=== PATIENT | female | born 1945 | race Caucasian/White ===

== ENCOUNTER 2018-04-01 08:44 | Inpatient (IN) | payer MEDICARE, BC ==
[~2018-04-01] VITALS: Ht 170.2 cm; Wt 90.0 kg
[2018-04-01] MEDS ORDERED: normal saline 1000ML IV soln IV ONE (09:05)
[2018-04-01 09:51] LABS: BASOPHILS % (AUTO) 0.2 % (0-1); EOSINOPHILS # (AUTO) 0.4 X10'3 (0-0.9); EOSINOPHILS % (AUTO) 4.3 % (0-6); HEMATOCRIT 33.1 % (35.0-45.0); HEMOGLOBIN 10.8 g/dl (12.0-16.0); LYMPHOCYTES # (AUTO) 1.6 X10'3 (1.1-4.8); LYMPHOCYTES % (AUTO) 17.8 % (21-51); MEAN CORPUSCULAR HEMOGLOBIN 29.8 PG (27.0-31.0); MEAN CORPUSCULAR HGB CONC 32.7 % (33.0-36.5); MEAN CORPUSCULAR VOLUME 90.9 FL (78-98); MEAN PLATELET VOLUME 9.7 FL (7.4-10.4); MONOCYTES # (AUTO) 1.1 X10'3 (0-0.9); MONOCYTES % (AUTO) 12.4 % (2-12); NEUTROPHILS # (AUTO) 5.8 X10'3 (1.8-7.7); NEUTROPHILS % (AUTO) 65.3 % (42-75); PLATELET COUNT 236 X10'3 (140-440); RED BLOOD COUNT 3.64 X10'6 (4.20-5.60); RED CELL DISTRIBUTION WIDTH 13.8 % (11.5-14.5); WHITE BLOOD COUNT 8.9 X10'3 (4.5-11.0)
[2018-04-01 10:03] LABS: ALANINE AMINOTRANSFERASE 15 U/L (12-78); ALBUMIN 2.6 G/DL (3.4-5.0); ALBUMIN/GLOBULIN RATIO 0.6 (1.1-1.5); ALKALINE PHOSPHATASE 41 IU/L (46-116); ANION GAP 8 (8-16); ASPARTATE AMINO TRANSFERASE 15 U/L (10-37); BILIRUBIN,TOTAL 0.5 MG/DL (0.1-1.0); BLOOD UREA NITROGEN 55 MG/DL (7-18); BUN/CREATININE RATIO 15.2 (6.6-38.0); CALCIUM 8.3 MG/DL (8.5-10.1); CHLORIDE 103 MMOL/L (99-107); CREATININE 3.63 MG/DL (0.40-0.90); GLUCOSE 108 MG/DL (70-104); POTASSIUM 4.5 MMOL/L (3.5-5.1); SODIUM 141 MMOL/L (135-145); TOTAL CARBON DIOXIDE 29.7 MMOL/L (24-32); TOTAL PROTEIN 6.9 G/DL (6.4-8.2); eGFR 12 ML/MIN
[2018-04-01] MEDS ORDERED: LOSA50TA64 PO (10:33)
[2018-04-01] MEDS ORDERED: FENO135C4 PO (10:33)
[2018-04-01] MEDS ORDERED: FURO40TA4 PO (10:33)
[2018-04-01] MEDS ORDERED: ATOR20TA66 PO (10:33)
[2018-04-01] MEDS ORDERED: DIGO125T2 PO (10:33)
[2018-04-01] MEDS ORDERED: ASPI-1265 PO (10:33)
[2018-04-01] MEDS ORDERED: SITA100T11 PO (10:33)
[2018-04-01] MEDS ORDERED: ACET-2119 PO (10:33)
[2018-04-01] MEDS ORDERED: LANS30CA56 PO (10:33)
[2018-04-01] MEDS ORDERED: PREG150C PO (10:33)
[2018-04-01] MEDS ORDERED: CARV6.2553 PO (10:33)
[2018-04-01] MEDS ORDERED: PARO20TA6 PO (10:33)
[2018-04-01 11:47] LABS: CLARITY,URINE CLOUDY (Clear); COLOR,URINE YELLOW (Yellow); GLUCOSE, URINE NEGATIVE (Neg); KETONES,URINE TRACE mg/dl (Neg); LEUKOCYTE ESTERASE ,URINE MODERATE (Neg); NITRITES, URINE NEGATIVE (Neg); OCCULT BLOOD,URINE LARGE (Neg); PH,URINE 5.5 (4.8-8.0); PROTEIN,URINE 30 mg/dl (Neg); UROBILINOGEN,URINE 0.2 E.U/dL (0.2-1.0)
[2018-04-01 11:51] LABS: UA COLLECTION TYPE FOLEY CATH
[2018-04-01 11:53] LABS: WBC,URINE TNTC /HPF (0-4)
[2018-04-01 11:54] LABS: BACTERIA,URINE FEW /HPF (Neg); SQUAMOUS EPITHELIAL CELL,UR MODERATE /LPF (FEW)
[2018-04-01] MEDS ORDERED: vancomycin/NS 1 GM ADD-VANTAGE 250 ML IV ONE (12:05)
[2018-04-01] MEDS ORDERED: CefTRIAXone 2gm/D5W 50ml 50 ML IV ONE (12:05)
[2018-04-01] MEDS ORDERED: magnesium 4gm in 100ml NS 100 ML IV PRN (13:25)
[2018-04-01] MEDS ORDERED: potassium Cl 20 mEq SR tablet PO PRN ×2 (13:25)
[2018-04-01] MEDS ORDERED: magnesium Cl slow-release 64mg tablet PO PRN (13:25)
[2018-04-01] MEDS ORDERED: acetaminophen 650mg rectal suppository RC PRN (13:25)
[2018-04-01] MEDS ORDERED: magnesium 2GM in 50ml NS 50 ML IV PRN (13:25)
[2018-04-01] MEDS ORDERED: ondansetron/PF 4mg/2ml inj IV PRN (13:25)
[2018-04-01] MEDS ORDERED: potassium Cl 40MEQ/NS 500ml 500 ML IV PRN ×2 (13:25)
[2018-04-01] MEDS: normal saline 1000ml 1,000 ML IV SCH (13:58)
--- NOTE | 2018-04-01 14:46 | NUR ---
HYGIENE PROVIDED FOR PATIENT AT THIS TIME, BM X1, LIQUID, GREEN/BROWN, FOUL ODOR, STOOL SAMPLE COLLECTED AND SENT TO LAB. SILICONE CREAM APPLIED TO PERINEUM, TOLERATED WELL, ABLE TO ASSIST WITH TURNING, ALL SAFETY MEASURES IN PLACE.
[2018-04-01 16:01] LABS: C DIFFICILE TOXINS A&B NEGATIVE (Neg)
[2018-04-01 16:02] LABS: C DIFF ANTIGEN NEGATIVE (NEGATIVE); C DIFF SPECIMEN=DIARRHEA? ACCEPTABLE
[2018-04-01] MEDS ORDERED: acetaminophen 325mg tablet PO PRN (19:00)
[2018-04-01 20:00] VITALS: BP 131/52
--- NOTE | 2018-04-01 22:07 | NUR ---
PAGER ID: [phone] MESSAGE: Isael Johsnon, pt Maria L castrejon room 3027B' s diet is NPO, can you possible advance that or is there a reason for it? Are you going to start a hyperglycemic for this pt? Thanks, Silvia RN [phone]!
[2018-04-01] MEDS: carvedilol 6.25mg tablet PO SCH (22:11)
[2018-04-01] MEDS ORDERED: MESSAGE TO PHARMACY PO ONE (22:20)
[2018-04-01] MEDS ORDERED: dextrose ORAL solution 15 GM/59 ML bottle PO PRN ×2 (22:20)
[2018-04-01] MEDS ORDERED: glucagon, human recombinant 1mg kit SUBCUT PRN (22:20)
[2018-04-01] MEDS ORDERED: dextrose 50%-water 50ml dispensing syringe IV PRN ×2 (22:20)
[2018-04-01] MEDS ORDERED: insulin Lispro (HumaLOG) vial - multi-dose SQ SCH (22:20)
[2018-04-01 23:00] VITALS: BP 132/54
[2018-04-02] MEDS: normal saline 1000ml 1,000 ML IV SCH ×3 (00:46→20:38)
[2018-04-02 03:00] VITALS: BP 103/42
[2018-04-02 05:12] LABS: BASOPHILS % (AUTO) 0.1 % (0-1); EOSINOPHILS # (AUTO) 0.2 X10'3 (0-0.9); EOSINOPHILS % (AUTO) 2.9 % (0-6); HEMATOCRIT 31.5 % (35.0-45.0); HEMOGLOBIN 10.2 g/dl (12.0-16.0); LYMPHOCYTES # (AUTO) 1.5 X10'3 (1.1-4.8); LYMPHOCYTES % (AUTO) 21.6 % (21-51); MEAN CORPUSCULAR HEMOGLOBIN 29.7 PG (27.0-31.0); MEAN CORPUSCULAR HGB CONC 32.5 % (33.0-36.5); MEAN CORPUSCULAR VOLUME 91.3 FL (78-98); MEAN PLATELET VOLUME 10.7 FL (7.4-10.4); MONOCYTES # (AUTO) 0.9 X10'3 (0-0.9); MONOCYTES % (AUTO) 12.9 % (2-12); NEUTROPHILS # (AUTO) 4.4 X10'3 (1.8-7.7); NEUTROPHILS % (AUTO) 62.5 % (42-75); PLATELET COUNT 225 X10'3 (140-440); RED BLOOD COUNT 3.44 X10'6 (4.20-5.60); RED CELL DISTRIBUTION WIDTH 14.4 % (11.5-14.5); WHITE BLOOD COUNT 7.1 X10'3 (4.5-11.0)
[2018-04-02 05:28] LABS: ALBUMIN 2.5 G/DL (3.4-5.0); ANION GAP 11 (8-16); BLOOD UREA NITROGEN 49 MG/DL (7-18); BUN/CREATININE RATIO 16.6 (6.6-38.0); CALCIUM 8.6 MG/DL (8.5-10.1); CHLORIDE 107 MMOL/L (99-107); CREATININE 2.96 MG/DL (0.40-0.90); GLUCOSE 111 MG/DL (70-104); MAGNESIUM 1.6 MG/DL (1.5-2.4); POTASSIUM 4.4 MMOL/L (3.5-5.1); SODIUM 146 MMOL/L (135-145); TOTAL CARBON DIOXIDE 27.7 MMOL/L (24-32); eGFR 15 ML/MIN
[2018-04-02 06:00] VITALS: BP 136/51
--- NOTE | 2018-04-02 06:13 | NUR ---
Problems reprioritized. Patient report given, questions answered & plan of care reviewed with Candie CHANEY.
--- NOTE | 2018-04-02 06:15 | NUR ---
Patient in room PCU 3027. I have received report from SHIV Brewster and SHIV Vega and had the opportunity to ask questions and assume patient care. Pt resting comfortably in bed and in no acute distress.
--- NOTE | 2018-04-02 06:23 | NUR ---
Orientee documentation: I have reviewed and agree with all interventions, assessments performed and documented by Silvia CHANEY. [place] Medication Administration: For this medication-pass time frame, all medication were reviewed, dispensed, administered and documented per hospital policy by Silvia CHANEY.
[2018-04-02 06:30] LABS: LARGE PLATELETS FEW; PLATELET ESTIMATE NORMAL
--- NOTE | 2018-04-02 06:30 | NUR ---
Patient in room PCU 3027. I have received report from Narcisa CHANEY and had the opportunity to ask questions and assume patient care. Patient resting comfortably in bed. In no acute distress. Will continue to monitor.
[2018-04-02] MEDS: atorvastatin 20mg tablet PO SCH (07:07)
[2018-04-02] MEDS: digoxin 125mcg (0.125mg) tablet PO SCH (07:09)
[2018-04-02] MEDS: carvedilol 6.25mg tablet PO SCH ×2 (07:09→20:38)
[2018-04-02] MEDS: CefTRIAXone/D5W-Rocephin 1gm 50 ML IV SCH (07:10)
[2018-04-02] MEDS: PARoxetine 20mg tablet PO SCH (07:10)
[2018-04-02] MEDS: pregabalin 75mg capsule PO SCH (07:10)
[2018-04-02] MEDS: pantoprazole 40mg Tablet.DR PO SCH (07:34)
--- NOTE | 2018-04-02 07:34 | NUR ---
protonix 40 mg PO administered barcode scan did not save in computer. 2 patient identifiers used for med pass.
[2018-04-02] MEDS: fenofibrate 145mg tablet PO SCH (07:38)
[2018-04-02] MEDS: aspirin 81mg tab.chew PO SCH (07:38)
[2018-04-02] MEDS: K and/or MAG REPLACEMENT MC SCH (08:00)
[2018-04-02 11:00] VITALS: BP 122/46
--- NOTE | 2018-04-02 11:54 | NUR ---
Paged Dr. Leon PAGER ID: [phone] MESSAGE: Candie HERNANDEZ [phone]. RE: Maria L Nguyen [phone]. Lab notified patient has positive blood cultures in right arm for aerobic and anerobic bacteria. Gram + cocci in clusters.
[2018-04-02 13:00] VITALS: BP 113/54
--- NOTE | 2018-04-02 17:30 | NUR ---
Problems reprioritized. Patient report given, questions answered & plan of care reviewed with Julianne CHANEY.
[2018-04-02 18:00] VITALS: BP 128/51
--- NOTE | 2018-04-02 18:30 | NUR ---
Patient in room SILVERIO 346. I have received report from Julianne CHANEY and had the opportunity to ask questions and assume patient care.
--- NOTE | 2018-04-02 18:33 | NUR ---
Orientee documentation: I have reviewed and agree with all interventions, assessments performed and documented by Cuauhtemoc CHANEY . [place]ee medication Administration: For this medication-pass time frame, all medication were reviewed, dispensed, administered and documented per hospital policy by Cuauhtemoc CHANEY
[2018-04-02] MEDS: insulin glargine (Lantus) pen - multi-dose SQ SCH (20:38)
[2018-04-03] VITALS: BP 151/55
[2018-04-03] MEDS: normal saline 1000ml 1,000 ML IV SCH ×2 (04:27→15:25)
[2018-04-03 04:59] LABS: BASOPHILS % (AUTO) 0.2 % (0-1); EOSINOPHILS # (AUTO) 0.3 X10'3 (0-0.9); EOSINOPHILS % (AUTO) 5.2 % (0-6); HEMATOCRIT 29.9 % (35.0-45.0); HEMOGLOBIN 9.6 g/dl (12.0-16.0); LYMPHOCYTES # (AUTO) 1.3 X10'3 (1.1-4.8); LYMPHOCYTES % (AUTO) 22.3 % (21-51); MEAN CORPUSCULAR HEMOGLOBIN 29.4 PG (27.0-31.0); MEAN CORPUSCULAR VOLUME 91.7 FL (78-98); MONOCYTES # (AUTO) 0.6 X10'3 (0-0.9); MONOCYTES % (AUTO) 10.7 % (2-12); NEUTROPHILS # (AUTO) 3.7 X10'3 (1.8-7.7); NEUTROPHILS % (AUTO) 61.6 % (42-75); PLATELET COUNT 229 X10'3 (140-440); RED BLOOD COUNT 3.26 X10'6 (4.20-5.60); RED CELL DISTRIBUTION WIDTH 14.2 % (11.5-14.5)
[2018-04-03 05:25] LABS: ALBUMIN 2.3 G/DL (3.4-5.0); ANION GAP 10 (8-16); BLOOD UREA NITROGEN 38 MG/DL (7-18); BUN/CREATININE RATIO 18.6 (6.6-38.0); CALCIUM 8.5 MG/DL (8.5-10.1); CHLORIDE 111 MMOL/L (99-107); CREATININE 2.04 MG/DL (0.40-0.90); GLUCOSE 99 MG/DL (70-104); MAGNESIUM 1.7 MG/DL (1.5-2.4); POTASSIUM 3.9 MMOL/L (3.5-5.1); SODIUM 146 MMOL/L (135-145); TOTAL CARBON DIOXIDE 25.5 MMOL/L (24-32); eGFR 24 ML/MIN
[2018-04-03 07:00] VITALS: BP 122/84
--- NOTE | 2018-04-03 07:15 | NUR ---
Problems reprioritized. Patient report given, questions answered & plan of care reviewed with Kathy RN.
[2018-04-03] MEDS: K and/or MAG REPLACEMENT MC SCH (08:00)
[2018-04-03] MEDS: aspirin 81mg tab.chew PO SCH (08:51)
[2018-04-03] MEDS: pregabalin 75mg capsule PO SCH (08:51)
[2018-04-03] MEDS: PARoxetine 20mg tablet PO SCH (08:51)
[2018-04-03] MEDS: pantoprazole 40mg Tablet.DR PO SCH (08:51)
[2018-04-03] MEDS: atorvastatin 20mg tablet PO SCH (08:51)
[2018-04-03] MEDS: digoxin 125mcg (0.125mg) tablet PO SCH (08:51)
[2018-04-03] MEDS: fenofibrate 145mg tablet PO SCH (08:51)
[2018-04-03] MEDS: carvedilol 6.25mg tablet PO SCH ×2 (08:51→19:52)
[2018-04-03] MEDS: CefTRIAXone/D5W-Rocephin 1gm 50 ML IV SCH (08:52)
--- NOTE | 2018-04-03 09:00 | NUR ---
SHIV Whitaker notified of pt's + Nasal MRSA swab.
[2018-04-03 11:00] VITALS: BP 138/50
--- NOTE | 2018-04-03 18:10 | NUR ---
Received report from Julianne CHANEY, pt is awake on 2L of O2 via NC, eating dinner, in no apparent distress, call light and items of freq use within reach.
[2018-04-03 19:00] VITALS: BP 124/45
--- NOTE | 2018-04-03 19:52 | NUR ---
holding pts Coreg B/P: 124/45, HR: 58
[2018-04-03] MEDS: insulin glargine (Lantus) pen - multi-dose SQ SCH (20:59)
[2018-04-03 23:29] VITALS: BP 121/46
[2018-04-04] MEDS: normal saline 1000ml 1,000 ML IV SCH ×2 (01:34→17:53)
[2018-04-04 05:53] LABS: BASOPHILS # (AUTO) 0.1 X10'3 (0-0.2); BASOPHILS % (AUTO) 0.7 % (0-1); EOSINOPHILS # (AUTO) 0.5 X10'3 (0-0.9); EOSINOPHILS % (AUTO) 6.9 % (0-6); HEMOGLOBIN 9.5 g/dl (12.0-16.0); LYMPHOCYTES # (AUTO) 1.6 X10'3 (1.1-4.8); LYMPHOCYTES % (AUTO) 22.5 % (21-51); MEAN CORPUSCULAR HEMOGLOBIN 29.9 PG (27.0-31.0); MEAN CORPUSCULAR HGB CONC 32.7 g/dL (33.0-36.5); MEAN CORPUSCULAR VOLUME 91.3 FL (78-98); MEAN PLATELET VOLUME 10.4 FL (7.4-10.4); MONOCYTES # (AUTO) 0.7 X10'3 (0-0.9); MONOCYTES % (AUTO) 10.5 % (2-12); NEUTROPHILS # (AUTO) 4.2 X10'3 (1.8-7.7); NEUTROPHILS % (AUTO) 59.4 % (42-75); PLATELET COUNT 220 X10'3 (140-440); RED BLOOD COUNT 3.18 X10'6 (4.20-5.60); RED CELL DISTRIBUTION WIDTH 13.9 % (11.5-14.5)
[2018-04-04 06:06] LABS: ALBUMIN 2.2 G/DL (3.4-5.0); ANION GAP 9 (8-16); BLOOD UREA NITROGEN 24 MG/DL (7-18); BUN/CREATININE RATIO 15.5 (6.6-38.0); CALCIUM 7.9 MG/DL (8.5-10.1); CHLORIDE 111 MMOL/L (99-107); CREATININE 1.55 MG/DL (0.40-0.90); GLUCOSE 110 MG/DL (70-104); MAGNESIUM 1.5 MG/DL (1.5-2.4); POTASSIUM 3.3 MMOL/L (3.5-5.1); SODIUM 147 MMOL/L (135-145); TOTAL CARBON DIOXIDE 27.5 MMOL/L (24-32); eGFR 33 ML/MIN
--- NOTE | 2018-04-04 06:21 | NUR ---
Problems reprioritized. Patient report given, questions answered & plan of care reviewed with eKyona CHANEY.
[2018-04-04 07:00] VITALS: BP 132/52
[2018-04-04] MEDS: digoxin 125mcg (0.125mg) tablet PO SCH ×3 (07:00→07:44)
[2018-04-04] MEDS: fenofibrate 145mg tablet PO SCH (07:32)
[2018-04-04] MEDS: pregabalin 75mg capsule PO SCH (07:32)
[2018-04-04] MEDS: PARoxetine 20mg tablet PO SCH (07:32)
[2018-04-04] MEDS: atorvastatin 20mg tablet PO SCH (07:32)
[2018-04-04] MEDS: CefTRIAXone/D5W-Rocephin 1gm 50 ML IV SCH (07:33)
[2018-04-04] MEDS: aspirin 81mg tab.chew PO SCH (07:33)
[2018-04-04] MEDS: carvedilol 6.25mg tablet PO SCH ×4 (07:33→20:00)
[2018-04-04] MEDS: pantoprazole 40mg Tablet.DR PO SCH (07:33)
[2018-04-04] MEDS: K and/or MAG REPLACEMENT MC SCH (07:34)
--- NOTE | 2018-04-04 09:47 | NUR ---
HR below parameters this AM at 52. Verified. Digoxin and Coreg held. notified. Telephone order received for digoxin level draw.
[2018-04-04] MEDS ORDERED: potassium Cl 20 mEq SR tablet PO PRN (14:25)
[2018-04-04] MEDS ORDERED: magnesium Cl slow-release 64mg tablet PO PRN (14:25)
[2018-04-04] MEDS ORDERED: magnesium 4gm in 100ml NS 100 ML IV PRN (14:25)
[2018-04-04] MEDS ORDERED: potassium Cl 40MEQ/NS 500ml 500 ML IV PRN ×2 (14:25)
[2018-04-04] MEDS ORDERED: magnesium 2GM in 50ml NS 50 ML IV PRN (14:25)
[2018-04-04] MEDS: potassium Cl 20 mEq SR tablet PO PRN ×2 (14:56→20:00)
--- NOTE | 2018-04-04 18:20 | NUR ---
Problems reprioritized. Patient report given, questions answered & plan of care reviewed with Renee CHANEY. Pt sitting up eating in chair.
--- NOTE | 2018-04-04 18:29 | NUR ---
Received report from Keyona CHANEY and Yaz RN pt is awake sitting up in recliner eating dinner, pt O2 sats low putting on 2L of O2 via NC, tabs alarm on
[2018-04-04 19:00] VITALS: BP 155/64
[2018-04-04] MEDS: lactobacillus rhamnosus 10,000 MMU CELLS/CAPSULE PO SCH (20:00)
[2018-04-04] MEDS: insulin glargine (Lantus) pen - multi-dose SQ SCH (21:00)
[2018-04-05 00:16] VITALS: BP 164/53
[2018-04-05 05:23] LABS: ALBUMIN 2.2 G/DL (3.4-5.0); ANION GAP 8 (8-16); BLOOD UREA NITROGEN 16 MG/DL (7-18); BUN/CREATININE RATIO 11.3 (6.6-38.0); CALCIUM 8.1 MG/DL (8.5-10.1); CHLORIDE 113 MMOL/L (99-107); CREATININE 1.42 MG/DL (0.40-0.90); GLUCOSE 157 MG/DL (70-104); MAGNESIUM 1.5 MG/DL (1.5-2.4); POTASSIUM 3.9 MMOL/L (3.5-5.1); SODIUM 147 MMOL/L (135-145); TOTAL CARBON DIOXIDE 25.7 MMOL/L (24-32); eGFR 36 ML/MIN
[2018-04-05] MEDS: normal saline 1000ml 1,000 ML IV SCH ×2 (05:25→14:54)
[2018-04-05 05:35] LABS: BASOPHILS # (AUTO) 0.1 X10'3 (0-0.2); BASOPHILS % (AUTO) 0.7 % (0-1); EOSINOPHILS # (AUTO) 0.5 X10'3 (0-0.9); EOSINOPHILS % (AUTO) 5.8 % (0-6); HEMATOCRIT 31.5 % (35.0-45.0); LYMPHOCYTES # (AUTO) 1.8 X10'3 (1.1-4.8); LYMPHOCYTES % (AUTO) 22.4 % (21-51); MEAN CORPUSCULAR HEMOGLOBIN 28.9 PG (27.0-31.0); MEAN CORPUSCULAR HGB CONC 31.7 g/dL (33.0-36.5); MEAN CORPUSCULAR VOLUME 91.1 FL (78-98); MEAN PLATELET VOLUME 10.5 FL (7.4-10.4); MONOCYTES # (AUTO) 0.8 X10'3 (0-0.9); MONOCYTES % (AUTO) 9.9 % (2-12); NEUTROPHILS % (AUTO) 61.2 % (42-75); PLATELET COUNT 257 X10'3 (140-440); RED BLOOD COUNT 3.46 X10'6 (4.20-5.60); RED CELL DISTRIBUTION WIDTH 14.7 % (11.5-14.5); WHITE BLOOD COUNT 8.2 X10'3 (4.5-11.0)
--- NOTE | 2018-04-05 06:22 | NUR ---
Problems reprioritized. Patient report given, questions answered & plan of care reviewed with Yaz CHANEY and Keyona CHANEY.
[2018-04-05 07:28] LABS: LARGE PLATELETS FEW; PLATELET ESTIMATE NORMAL
[2018-04-05] MEDS: pregabalin 75mg capsule PO SCH (07:57)
[2018-04-05] MEDS: carvedilol 6.25mg tablet PO SCH ×2 (07:58→19:34)
[2018-04-05] MEDS: aspirin 81mg tab.chew PO SCH (07:58)
[2018-04-05] MEDS: fenofibrate 145mg tablet PO SCH (07:58)
[2018-04-05] MEDS: pantoprazole 40mg Tablet.DR PO SCH (07:58)
[2018-04-05] MEDS: atorvastatin 20mg tablet PO SCH (07:58)
[2018-04-05] MEDS: lactobacillus rhamnosus 10,000 MMU CELLS/CAPSULE PO SCH ×2 (07:58→19:34)
[2018-04-05] MEDS: K and/or MAG REPLACEMENT MC SCH (07:59)
[2018-04-05] MEDS: CefTRIAXone/D5W-Rocephin 1gm 50 ML IV SCH (07:59)
[2018-04-05] MEDS: PARoxetine 20mg tablet PO SCH (07:59)
[2018-04-05] MEDS: digoxin 125mcg (0.125mg) tablet PO SCH (07:59)
[2018-04-05 08:00] VITALS: BP 145/83
[2018-04-05 12:00] VITALS: BP 150/72
--- NOTE | 2018-04-05 12:14 | NUR ---
Initial: Pt admitted with acute AMS likely d/t toxic metabolic encephalopathy d/t renal failure per H&P. Pt also admit with UTI, acute renal failure, and diarrhea negative for C.diff per MD progress notes. Pt currently on a mech soft renal CHO controlled diet with previous intake 50-75%, now increased to 75-100% meeting nutrient needs. LBM 04/04. Will continue to follow. Recommendations: 1) Continue with mech soft renal CHO controlled diet 2) Monitor need for additional bowel care 3) Wt per rx Addendum: 04/05/18 at [address] Amended: Links added.
[2018-04-05] MEDS ORDERED: sodium chloride 0.45% 1,000 ML IV ONE (14:55)
--- NOTE | 2018-04-05 18:16 | NUR ---
Received report from Yaz Lane and Keyona RN pt is awake on 2L of O2 via NC in no apparent distress, eating dinner
--- NOTE | 2018-04-05 18:33 | NUR ---
Problems reprioritized. Patient report given, questions answered & plan of care reviewed with Samantha.
[2018-04-05 19:00] VITALS: BP 154/68
[2018-04-05] MEDS: insulin glargine (Lantus) pen - multi-dose SQ SCH (21:00)
[2018-04-05 23:58] VITALS: BP 165/61
[2018-04-06 05:22] LABS: CHLORIDE 111 MMOL/L (99-107); GLUCOSE 141 MG/DL (70-104); POTASSIUM 3.8 MMOL/L (3.5-5.1); SODIUM 146 MMOL/L (135-145); TOTAL CARBON DIOXIDE 27.7 MMOL/L (24-32)
[2018-04-06 05:23] LABS: ALBUMIN 2.1 G/DL (3.4-5.0); ANION GAP 7 (8-16); BLOOD UREA NITROGEN 12 MG/DL (7-18); CALCIUM 8.2 MG/DL (8.5-10.1); CREATININE 1.33 MG/DL (0.40-0.90); MAGNESIUM 1.4 MG/DL (1.5-2.4); eGFR 39 ML/MIN
--- NOTE | 2018-04-06 06:15 | NUR ---
Patient in room [facility]ILVERIO 346. I have received report from SHARONDA CHANEY and had the opportunity to ask questions and assume patient care.
--- NOTE | 2018-04-06 06:20 | NUR ---
Gave report to Arielle CHANEY pt is awake and confused, pt ripped IV as I was walking into the room, on 2L of O2 via NC
[2018-04-06 07:15] VITALS: BP 143/57
[2018-04-06] MEDS: lactobacillus rhamnosus 10,000 MMU CELLS/CAPSULE PO SCH (07:51)
[2018-04-06] MEDS: atorvastatin 20mg tablet PO SCH (07:51)
[2018-04-06] MEDS: pregabalin 75mg capsule PO SCH (07:51)
[2018-04-06] MEDS: carvedilol 6.25mg tablet PO SCH (07:51)
[2018-04-06] MEDS: aspirin 81mg tab.chew PO SCH (07:52)
[2018-04-06] MEDS: fenofibrate 145mg tablet PO SCH (07:52)
[2018-04-06] MEDS: PARoxetine 20mg tablet PO SCH (07:52)
[2018-04-06] MEDS: digoxin 125mcg (0.125mg) tablet PO SCH (07:52)
[2018-04-06] MEDS: pantoprazole 40mg Tablet.DR PO SCH (07:52)
[2018-04-06] MEDS: CefTRIAXone/D5W-Rocephin 1gm 50 ML IV SCH (07:53)
[2018-04-06] MEDS: K and/or MAG REPLACEMENT MC SCH (07:56)
[2018-04-06 13:40] VITALS: BP 162/57
--- NOTE | 2018-04-06 14:37 | NUR ---
I CALLED JENY MICHEL AT [facility] AND GAVE REPORT. WAITING PATIENTS REROLLER HAND TIME 1500
--- NOTE | 2018-04-06 17:50 | NUR ---
PATIENT DISCHARGED TO [facility] WITH MAGDALENA CARGO. NO PERSONAL BELONGINGS. IV REMOVED. ON . PATIENT STABLE FOR TRANSFER ON A GURTAMPA
== END 2018-04-06 18:00 | DRG 682 ==
LOC: ER 08:45 → ED HOLD 13:25 → PCU 3S 19:07 → SUR 3N 04-02 18:46
PROVIDERS: ADMIT Internal Medicine; ATTEND Hospitalist
DX: N17.9 Acute kidney failure, unspecified (principal); G92 Toxic encephalopathy; N39.0 Urinary tract infection, site not specified; E46 Unspecified protein-calorie malnutrition; D64.9 Anemia, unspecified; E11.22 Type 2 diabetes mellitus with diabetic chronic kidney disease; E78.00 Pure hypercholesterolemia, unspecified; F41.9 Anxiety disorder, unspecified; E87.6 Hypokalemia; G89.29 Other chronic pain; M48.061 Spinal stenosis, lumbar region without neurogenic claudication; M54.9 Dorsalgia, unspecified; R19.7 Diarrhea, unspecified; E11.21 Type 2 diabetes mellitus with diabetic nephropathy; E78.5 Hyperlipidemia, unspecified; I12.9 Hypertensive chronic kidney disease with stage 1 through stage 4 chronic kidney disease, or unspecified chronic kidney disease; I25.10 Atherosclerotic heart disease of native coronary artery without angina pectoris; I48.2 Chronic atrial fibrillation; N18.3 Chronic kidney disease, stage 3 (moderate); Z99.3 Dependence on wheelchair; Z95.1 Presence of aortocoronary bypass graft; Z88.5 Allergy status to narcotic agent; Z79.899 Other long term (current) drug therapy; Z79.82 Long term (current) use of aspirin; Z79.01 Long term (current) use of anticoagulants; Z68.31 Body mass index [BMI] 31.0-31.9, adult
CPT/HCPCS: 36415; 71045; 80048; 80053; 80162; 81001; 82948; 83036; 83605; 83735; 84145; 84484; 85025; 87040; 87045; 87046; 87070; 87077; 87088; 87186; 87324; 87449; 89055; 93005; 96361; 96365; 96368; 97110; 97161; 97530; 99285; G0378; J0696; J1815; J3370; J7030

== ENCOUNTER 2019-04-19 15:43 | Inpatient (IN) | payer MEDICARE, BC ==
[~2019-04-19] VITALS: Ht 165.1 cm; Wt 74.0 kg
[2019-04-19] VITALS: BP 112/39
[~2019-04-19 15:43] MED LIST: ACET-2119 PO; ASPI-1265 PO; ATOR20TA66 PO; CARV6.2553 PO; DIGO125T2 PO; FENO135C4 PO; FURO40TA4 PO; LANS30CA56 PO; LOSA50TA64 PO; PARO20TA6 PO; PREG150C PO; SITA100T11 PO
[2019-04-19 17:00] LABS: BASOPHILS # (AUTO) 0.1 X10'3 (0-0.2); BASOPHILS % (AUTO) 0.6 % (0-1); EOSINOPHILS % (AUTO) 0.1 % (0-6); HEMATOCRIT 27.6 % (35.0-45.0); LYMPHOCYTES # (AUTO) 1.5 X10'3 (1.1-4.8); LYMPHOCYTES % (AUTO) 13.6 % (21-51); MEAN CORPUSCULAR HEMOGLOBIN 27.9 PG (27.0-31.0); MEAN CORPUSCULAR HGB CONC 32.5 g/dL (33.0-36.5); MEAN CORPUSCULAR VOLUME 85.8 FL (78-98); MEAN PLATELET VOLUME 9.3 FL (7.4-10.4); MONOCYTES # (AUTO) 1.3 X10'3 (0-0.9); MONOCYTES % (AUTO) 11.8 % (2-12); NEUTROPHILS # (AUTO) 8.1 X10'3 (1.8-7.7); NEUTROPHILS % (AUTO) 73.9 % (42-75); PLATELET COUNT 190 X10'3 (140-440); RED BLOOD COUNT 3.21 X10'6 (4.20-5.60); RED CELL DISTRIBUTION WIDTH 14.2 % (11.5-14.5)
[2019-04-19 17:11] LABS: ALANINE AMINOTRANSFERASE 14 U/L (12-78); ALBUMIN 2.5 G/DL (3.4-5.0); ALBUMIN/GLOBULIN RATIO 0.5 (1.1-1.5); ALKALINE PHOSPHATASE 66 IU/L (46-116); ANION GAP 7 (8-16); ASPARTATE AMINO TRANSFERASE 26 U/L (10-37); BILIRUBIN,TOTAL 0.2 MG/DL (0.1-1.0); BLOOD UREA NITROGEN 70 MG/DL (7-18); CALCIUM 8.7 MG/DL (8.5-10.1); CHLORIDE 105 MMOL/L (99-107); CREATININE 3.88 MG/DL (0.40-0.90); GLUCOSE 204 MG/DL (70-104); POTASSIUM 4.6 MMOL/L (3.5-5.1); SODIUM 141 MMOL/L (135-145); TOTAL CARBON DIOXIDE 29.1 MMOL/L (24-32); TOTAL PROTEIN 7.3 G/DL (6.4-8.2); eGFR 11 ML/MIN
[2019-04-19 17:12] LABS: CLARITY,URINE TURBID (Clear); COLOR,URINE YELLOW (Yellow); GLUCOSE, URINE NEGATIVE (Neg); KETONES,URINE NEGATIVE (Neg); LEUKOCYTE ESTERASE ,URINE LARGE (Neg); NITRITES, URINE NEGATIVE (Neg); OCCULT BLOOD,URINE LARGE (Neg); PROTEIN,URINE 100 mg/dl (Neg); UA COLLECTION TYPE STRAIGHT CATH; UROBILINOGEN,URINE 0.2 E.U/dL (0.2-1.0)
[2019-04-19 17:17] LABS: BACTERIA,URINE 2+ /HPF (Neg); MUCUS STRANDS NONE SEEN /LPF (Neg); SQUAMOUS EPITHELIAL CELL,UR NONE SEEN /LPF (FEW); WBC CLUMPS,URINE MANY /HPF (NEGATIVE); WBC,URINE TNTC /HPF (0-4)
[2019-04-19] MEDS ORDERED: CefTRIAXone/D5W-Rocephin 1gm 50 ML IV ONE (17:35)
[2019-04-19] MEDS ORDERED: normal saline 1000ML IV soln IVB ONE (17:35)
[2019-04-19] MEDS ORDERED: acetaminophen 325mg tablet PO ONE (17:35)
[2019-04-19] MEDS ORDERED: magnesium hydroxide 30ml (MOM) UD suspension PO PRN (17:40)
[2019-04-19] MEDS ORDERED: ondansetron/PF 4mg/2ml inj IV PRN (17:40)
[2019-04-19] MEDS ORDERED: mag hydrox/Alum hydrox/simeth 30ml oral suspension PO PRN (17:40)
[2019-04-19] MEDS ORDERED: acetaminophen 325mg tablet PO PRN (17:40)
[2019-04-19] MEDS ORDERED: POLY17PO10 PO (18:09)
[2019-04-19] MEDS ORDERED: BISA10SU60 RC (18:09)
[2019-04-19] MEDS ORDERED: IPRA3AMP9 IH (18:09)
[2019-04-19] MEDS ORDERED: DOCU-148 PO (18:09)
[2019-04-19] MEDS ORDERED: LISI-600 PO (18:09)
[2019-04-19] MEDS ORDERED: MELA1TAB28 PO (18:09)
[2019-04-19] MEDS: normal saline 1000ml 1,000 ML IV SCH (18:25)
[2019-04-19 19:00] VITALS: BP 105/42
[2019-04-19] MEDS: oseltamivir phos 75mg capsule PO SCH (20:55)
[2019-04-19] MEDS: heparin, porcine 5000 units/ml vial SQ SCH (20:55)
[2019-04-20 00:03] VITALS: BP 112/39
[2019-04-20] MEDS: normal saline 1000ml 1,000 ML IV SCH ×2 (03:12→15:29)
[2019-04-20 05:17] LABS: BASOPHILS % (AUTO) 0.2 % (0-1); EOSINOPHILS % (AUTO) 0.1 % (0-6); HEMATOCRIT 28.7 % (35.0-45.0); HEMOGLOBIN 9.1 g/dl (12.0-16.0); LYMPHOCYTES # (AUTO) 1.9 X10'3 (1.1-4.8); LYMPHOCYTES % (AUTO) 12.1 % (21-51); MEAN CORPUSCULAR HEMOGLOBIN 27.3 PG (27.0-31.0); MEAN CORPUSCULAR HGB CONC 31.6 g/dL (33.0-36.5); MEAN CORPUSCULAR VOLUME 86.3 FL (78-98); MEAN PLATELET VOLUME 9.5 FL (7.4-10.4); MONOCYTES # (AUTO) 1.6 X10'3 (0-0.9); MONOCYTES % (AUTO) 10.7 % (2-12); NEUTROPHILS # (AUTO) 11.8 X10'3 (1.8-7.7); NEUTROPHILS % (AUTO) 76.9 % (42-75); PLATELET COUNT 196 X10'3 (140-440); RED BLOOD COUNT 3.33 X10'6 (4.20-5.60); RED CELL DISTRIBUTION WIDTH 14.5 % (11.5-14.5); WHITE BLOOD COUNT 15.4 X10'3 (4.5-11.0)
[2019-04-20 05:26] LABS: ALBUMIN 2.5 G/DL (3.4-5.0); ANION GAP 10 (8-16); BLOOD UREA NITROGEN 71 MG/DL (7-18); BUN/CREATININE RATIO 17.3 (6.6-38.0); CALCIUM 8.5 MG/DL (8.5-10.1); CHLORIDE 107 MMOL/L (99-107); CREATININE 4.11 MG/DL (0.40-0.90); GLUCOSE 137 MG/DL (70-104); POTASSIUM 4.7 MMOL/L (3.5-5.1); SODIUM 145 MMOL/L (135-145); TOTAL CARBON DIOXIDE 27.6 MMOL/L (24-32); eGFR 11 ML/MIN
--- NOTE | 2019-04-20 06:27 | NUR ---
Patient in room [facility]ILVERIO 341. I have received report from SHIV UGARTE and had the opportunity to ask questions and assume patient care.
--- NOTE | 2019-04-20 06:31 | NUR ---
Problems reprioritized. Patient report given, questions answered & plan of care reviewed with TRESSA. Addendum: 04/20/19 at 0631 by Saman Azar RN Amended: Links added.
[2019-04-20] MEDS: heparin, porcine 5000 units/ml vial SQ SCH ×2 (07:15→20:37)
[2019-04-20 07:25] VITALS: BP 97/56
[2019-04-20] MEDS ORDERED: CefTRIAXone 2gm/D5W 50ml 50 ML IV SCH (08:00)
[2019-04-20] MEDS ORDERED: bisacodyl 10mg suppository rectal RC PRN (08:30)
[2019-04-20] MEDS ORDERED: insulin Lispro (HumaLOG) vial - multi-dose SQ SCH (08:30)
[2019-04-20] MEDS ORDERED: dextrose 50%-water 50ml dispensing syringe IV PRN ×2 (08:30)
[2019-04-20] MEDS ORDERED: ipratropium/albuterol 3ml nebule NEB PRN (08:30)
[2019-04-20] MEDS ORDERED: dextrose ORAL solution 15 GM/59 ML bottle PO PRN ×2 (08:30)
[2019-04-20] MEDS ORDERED: MESSAGE TO PHARMACY PO ONE (08:30)
[2019-04-20] MEDS ORDERED: glucagon, human recombinant 1mg kit SUBCUT PRN (08:30)
[2019-04-20] MEDS: PARoxetine 10mg tablet PO SCH (09:00)
[2019-04-20] MEDS: pregabalin 75mg capsule PO SCH (09:00)
[2019-04-20] MEDS: oseltamivir phos 75mg capsule PO SCH ×2 (09:28→20:38)
[2019-04-20] MEDS: ipratropium/albuterol 3ml nebule NEB SCH ×3 (10:10→20:06)
[2019-04-20 11:15] VITALS: BP 133/48
--- NOTE | 2019-04-20 13:31 | NUR ---
16FR PRECIADO CATH INSERTED PER MD ORDER. PATIENT TOLERATED PROCEDURE WELL. CLOUDY, WHITE URINE DRAINED. URINE SENT DOWN TO LAB ORDERED.
[2019-04-20] MEDS: piperacillin/tazo 3.375gm/50ml 50 ML IV SCH ×3 (13:42→23:59)
[2019-04-20 13:47] LABS: TOTAL PROTEIN,URINE RANDOM 275.2 MG/DL
--- NOTE | 2019-04-20 14:18 | NUR ---
DM consult, Hgb A1c is 8.4, currently patient documented as confused and admitted with ALOC, unable to provide education. Will need written DM education handout with verbal review and referral to outpatient DM education class on Saturday morning prior to discharge. Will follow. Addendum: 04/20/19 at [address] Amended: Links added.
[2019-04-20 17:42] LABS: ALBUMIN 2.1 G/DL (3.4-5.0); ANION GAP 10 (8-16); BLOOD UREA NITROGEN 69 MG/DL (7-18); BUN/CREATININE RATIO 19.2 (6.6-38.0); CHLORIDE 107 MMOL/L (99-107); CREATININE 3.59 MG/DL (0.40-0.90); GLUCOSE 162 MG/DL (70-104); POTASSIUM 4.4 MMOL/L (3.5-5.1); SODIUM 142 MMOL/L (135-145); TOTAL CARBON DIOXIDE 25.5 MMOL/L (24-32); eGFR 12 ML/MIN
--- NOTE | 2019-04-20 18:00 | NUR ---
Patient in room [facility]ILVERIO 341. I have received report from Jana CHANEY and had the opportunity to ask questions and assume patient care.
--- NOTE | 2019-04-20 18:37 | NUR ---
Problems reprioritized. Patient report given, questions answered & plan of care reviewed with SHIV Greenwood.
[2019-04-20 20:00] VITALS: BP 104/38
[2019-04-20] MEDS: carvedilol 6.25mg tablet PO SCH (20:00)
[2019-04-20] MEDS: lactobacillus rhamnosus 10,000 MMU CELLS/CAPSULE PO SCH (20:38)
[2019-04-20] MEDS: Melatonin 3mg tablet PO SCH (20:38)
[2019-04-20 20:41] VITALS: BP 104/38
[2019-04-20] MEDS: insulin glargine (Lantus) pen - multi-dose SQ SCH (21:00)
[2019-04-21] VITALS: BP 117/45
[2019-04-21] MEDS: guaiFENesin 200 MG/10 ML oral syrup UD cup PO PRN (01:35)
[2019-04-21 05:17] LABS: BASOPHILS % (AUTO) 0.2 % (0-1); EOSINOPHILS % (AUTO) 0.2 % (0-6); HEMATOCRIT 25.8 % (35.0-45.0); HEMOGLOBIN 8.1 g/dl (12.0-16.0); LYMPHOCYTES # (AUTO) 1.5 X10'3 (1.1-4.8); MEAN CORPUSCULAR HEMOGLOBIN 26.9 PG (27.0-31.0); MEAN CORPUSCULAR HGB CONC 31.6 g/dL (33.0-36.5); MEAN CORPUSCULAR VOLUME 85.3 FL (78-98); MEAN PLATELET VOLUME 9.9 FL (7.4-10.4); MONOCYTES # (AUTO) 1.1 X10'3 (0-0.9); MONOCYTES % (AUTO) 7.6 % (2-12); PLATELET COUNT 187 X10'3 (140-440); RED BLOOD COUNT 3.02 X10'6 (4.20-5.60); RED CELL DISTRIBUTION WIDTH 14.7 % (11.5-14.5); WHITE BLOOD COUNT 14.6 X10'3 (4.5-11.0)
[2019-04-21 05:27] LABS: ALBUMIN 2.1 G/DL (3.4-5.0); ANION GAP 11 (8-16); BLOOD UREA NITROGEN 66 MG/DL (7-18); BUN/CREATININE RATIO 20.8 (6.6-38.0); CALCIUM 8.4 MG/DL (8.5-10.1); CHLORIDE 108 MMOL/L (99-107); CREATININE 3.18 MG/DL (0.40-0.90); GLUCOSE 99 MG/DL (70-104); POTASSIUM 4.5 MMOL/L (3.5-5.1); SODIUM 143 MMOL/L (135-145); TOTAL CARBON DIOXIDE 24.4 MMOL/L (24-32); eGFR 14 ML/MIN
--- NOTE | 2019-04-21 06:19 | NUR ---
Problems reprioritized. Patient report given, questions answered & plan of care reviewed with Maria Elena CHANEY.
[2019-04-21] MEDS: carvedilol 6.25mg tablet PO SCH ×2 (07:20→20:58)
[2019-04-21 07:30] VITALS: BP_SYST 110; BP_SYST 123; BP_DIAS 45; BP_DIAS 48
[2019-04-21] MEDS: docusate sod 100mg capsule PO SCH (07:42)
[2019-04-21] MEDS: atorvastatin 20mg tablet PO SCH (07:42)
[2019-04-21] MEDS: PARoxetine 10mg tablet PO SCH (07:42)
[2019-04-21] MEDS: piperacillin/tazo 3.375gm/50ml 50 ML IV SCH ×2 (07:42→19:55)
[2019-04-21] MEDS: oseltamivir phos 75mg capsule PO SCH ×2 (07:42→22:43)
[2019-04-21] MEDS: pregabalin 75mg capsule PO SCH (07:42)
[2019-04-21] MEDS: lactobacillus rhamnosus 10,000 MMU CELLS/CAPSULE PO SCH ×2 (07:42→19:56)
[2019-04-21] MEDS: polyethylene glycol 3350 17gm powd pack PO SCH (07:43)
[2019-04-21] MEDS: heparin, porcine 5000 units/ml vial SQ SCH ×2 (07:43→19:56)
[2019-04-21] MEDS: ipratropium/albuterol 3ml nebule NEB SCH ×3 (08:04→20:05)
--- NOTE | 2019-04-21 10:29 | NUR ---
F/u for DM consult: Pt remains A/O x 1 and confused and per PMH with dementia and short term memory loss. DM education not appropriate at this time. Per records, patient's A1c was 6.0 04/01/19, current A1c is 8.4. Significant increase in A1c seems unlikely given pt has been residing at [facility] and BG mid to low 100s during admit. Will continue to follow. Addendum: 04/21/19 at [address] Amended: Links added.
[2019-04-21 11:23] VITALS: BP 100/41
[2019-04-21 11:25] VITALS: BP 109/43
[2019-04-21] MEDS: normal saline 1000ml 1,000 ML IV SCH (12:02)
--- NOTE | 2019-04-21 18:00 | NUR ---
Patient in room [facility]ILVERIO 341. I have received report from Maria Elena CHANEY and had the opportunity to ask questions and assume patient care.
--- NOTE | 2019-04-21 18:21 | NUR ---
Problems reprioritized. Patient report given, questions answered & plan of care reviewed with SHIV Madrigal.
[2019-04-21 20:00] VITALS: BP 128/46
[2019-04-21] MEDS: insulin glargine (Lantus) pen - multi-dose SQ SCH (21:00)
[2019-04-21] MEDS: Melatonin 3mg tablet PO SCH (22:43)
[2019-04-22] VITALS: BP 113/59
[2019-04-22] MEDS: guaiFENesin 200 MG/10 ML oral syrup UD cup PO PRN (04:02)
[2019-04-22 05:02] LABS: BASOPHILS % (AUTO) 0.2 % (0-1); EOSINOPHILS # (AUTO) 0.2 X10'3 (0-0.9); EOSINOPHILS % (AUTO) 1.6 % (0-6); HEMATOCRIT 26.4 % (35.0-45.0); HEMOGLOBIN 8.5 g/dl (12.0-16.0); LYMPHOCYTES # (AUTO) 1.7 X10'3 (1.1-4.8); LYMPHOCYTES % (AUTO) 15.8 % (21-51); MEAN CORPUSCULAR HEMOGLOBIN 27.3 PG (27.0-31.0); MEAN CORPUSCULAR HGB CONC 32.1 g/dL (33.0-36.5); MEAN CORPUSCULAR VOLUME 85.2 FL (78-98); MEAN PLATELET VOLUME 9.3 FL (7.4-10.4); NEUTROPHILS # (AUTO) 7.8 X10'3 (1.8-7.7); NEUTROPHILS % (AUTO) 73.4 % (42-75); PLATELET COUNT 200 X10'3 (140-440); RED CELL DISTRIBUTION WIDTH 14.7 % (11.5-14.5); WHITE BLOOD COUNT 10.6 X10'3 (4.5-11.0)
[2019-04-22 05:14] LABS: ALBUMIN 2.2 G/DL (3.4-5.0); ANION GAP 6 (8-16); BLOOD UREA NITROGEN 54 MG/DL (7-18); CALCIUM 8.4 MG/DL (8.5-10.1); CHLORIDE 109 MMOL/L (99-107); CREATININE 2.35 MG/DL (0.40-0.90); GLUCOSE 115 MG/DL (70-104); POTASSIUM 4.3 MMOL/L (3.5-5.1); SODIUM 142 MMOL/L (135-145); TOTAL CARBON DIOXIDE 26.8 MMOL/L (24-32); eGFR 20 ML/MIN
--- NOTE | 2019-04-22 06:34 | NUR ---
Problems reprioritized. Patient report given, questions answered & plan of care reviewed with Malini CHANEY.
--- NOTE | 2019-04-22 06:41 | NUR ---
Patient in room [facility]ILVERIO 341. I have received report from julia CHANEY and had the opportunity to ask questions and assume patient care.
[2019-04-22 07:24] VITALS: BP 137/52
[2019-04-22] MEDS: polyethylene glycol 3350 17gm powd pack PO SCH (08:00)
[2019-04-22] MEDS: ipratropium/albuterol 3ml nebule NEB SCH ×3 (08:27→21:07)
[2019-04-22] MEDS: docusate sod 100mg capsule PO SCH (08:53)
[2019-04-22] MEDS: carvedilol 6.25mg tablet PO SCH ×2 (08:54→21:37)
[2019-04-22] MEDS: lactobacillus rhamnosus 10,000 MMU CELLS/CAPSULE PO SCH ×2 (08:54→21:37)
[2019-04-22] MEDS: atorvastatin 20mg tablet PO SCH (08:54)
[2019-04-22] MEDS: pregabalin 75mg capsule PO SCH (08:55)
[2019-04-22] MEDS: PARoxetine 10mg tablet PO SCH (08:55)
[2019-04-22] MEDS: heparin, porcine 5000 units/ml vial SQ SCH ×2 (08:56→21:37)
[2019-04-22] MEDS: oseltamivir phos 75mg capsule PO SCH ×2 (09:00→21:37)
[2019-04-22] MEDS: piperacillin/tazo 3.375gm/50ml 50 ML IV SCH ×2 (09:03→21:36)
[2019-04-22] MEDS: normal saline 1000ml 1,000 ML IV SCH (09:18)
[2019-04-22 11:35] VITALS: BP 122/58
--- NOTE | 2019-04-22 17:58 | NUR ---
All cares given. Continues with Tamiflu and IV ABX.. Daughter visiting most of day, up with PT in chair using steady. No c/o pain.
--- NOTE | 2019-04-22 18:06 | NUR ---
Problems reprioritized. Patient report given, questions answered & plan of care reviewed with julia CHANEY.
--- NOTE | 2019-04-22 18:10 | NUR ---
Patient in room [facility]ILVERIO 341. I have received report from Malini CHANEY and had the opportunity to ask questions and assume patient care.
[2019-04-22 20:00] VITALS: BP 145/62
[2019-04-22] MEDS: insulin glargine (Lantus) pen - multi-dose SQ SCH (21:00)
[2019-04-22] MEDS: Melatonin 3mg tablet PO SCH (21:37)
[2019-04-23] VITALS: BP 131/86
[2019-04-23] MEDS: normal saline 1000ml 1,000 ML IV SCH (04:56)
[2019-04-23 05:03] LABS: BASOPHILS % (AUTO) 0.3 % (0-1); EOSINOPHILS # (AUTO) 0.2 X10'3 (0-0.9); EOSINOPHILS % (AUTO) 2.6 % (0-6); HEMATOCRIT 24.4 % (35.0-45.0); LYMPHOCYTES # (AUTO) 1.9 X10'3 (1.1-4.8); MEAN CORPUSCULAR HEMOGLOBIN 27.9 PG (27.0-31.0); MEAN CORPUSCULAR HGB CONC 32.9 g/dL (33.0-36.5); MEAN PLATELET VOLUME 8.7 FL (7.4-10.4); MONOCYTES # (AUTO) 0.9 X10'3 (0-0.9); MONOCYTES % (AUTO) 11.7 % (2-12); NEUTROPHILS # (AUTO) 4.8 X10'3 (1.8-7.7); NEUTROPHILS % (AUTO) 61.4 % (42-75); PLATELET COUNT 204 X10'3 (140-440); RED BLOOD COUNT 2.87 X10'6 (4.20-5.60); RED CELL DISTRIBUTION WIDTH 14.3 % (11.5-14.5); WHITE BLOOD COUNT 7.8 X10'3 (4.5-11.0)
[2019-04-23 05:18] LABS: ANION GAP 8 (8-16); BLOOD UREA NITROGEN 36 MG/DL (7-18); BUN/CREATININE RATIO 20.2 (6.6-38.0); CALCIUM 8.3 MG/DL (8.5-10.1); CHLORIDE 111 MMOL/L (99-107); CREATININE 1.78 MG/DL (0.40-0.90); GLUCOSE 130 MG/DL (70-104); SODIUM 146 MMOL/L (135-145); TOTAL CARBON DIOXIDE 27.2 MMOL/L (24-32); eGFR 28 ML/MIN
--- NOTE | 2019-04-23 06:12 | NUR ---
Problems reprioritized. Patient report given, questions answered & plan of care reviewed with Malini CHANEY.
--- NOTE | 2019-04-23 06:15 | NUR ---
Patient in room SILVERIO 341. I have received report from Kaitlin CHANEY and had the opportunity to ask questions and assume patient care.
--- NOTE | 2019-04-23 06:38 | NUR ---
Patient in room SILVERIO 341. I have received report from Kirsten and had the opportunity to ask questions and assume patient care.
[2019-04-23 07:33] VITALS: BP 147/58
[2019-04-23] MEDS: docusate sod 100mg capsule PO SCH (07:44)
[2019-04-23] MEDS: lactobacillus rhamnosus 10,000 MMU CELLS/CAPSULE PO SCH ×2 (07:45→20:12)
[2019-04-23] MEDS: atorvastatin 20mg tablet PO SCH (07:45)
[2019-04-23] MEDS: pregabalin 75mg capsule PO SCH (07:46)
[2019-04-23] MEDS: oseltamivir phos 75mg capsule PO SCH ×2 (07:46→21:09)
[2019-04-23] MEDS: PARoxetine 10mg tablet PO SCH (07:46)
[2019-04-23] MEDS: carvedilol 6.25mg tablet PO SCH ×2 (07:47→20:00)
[2019-04-23] MEDS: polyethylene glycol 3350 17gm powd pack PO SCH (07:49)
[2019-04-23] MEDS: heparin, porcine 5000 units/ml vial SQ SCH ×2 (07:54→20:15)
[2019-04-23] MEDS: piperacillin/tazo 3.375gm/50ml 50 ML IV SCH ×2 (07:54→20:12)
[2019-04-23] MEDS: guaiFENesin 200 MG/10 ML oral syrup UD cup PO PRN (07:59)
[2019-04-23] MEDS: ipratropium/albuterol 3ml nebule NEB SCH ×3 (09:25→21:12)
[2019-04-23 11:00] VITALS: BP 149/78
--- NOTE | 2019-04-23 12:13 | NUR ---
Gave Incentive spirometer training
--- NOTE | 2019-04-23 12:15 | NUR ---
Problems reprioritized. Patient report given, questions answered & plan of care reviewed with Faraz.
--- NOTE | 2019-04-23 17:29 | NUR ---
Student documentation: I have reviewed all interventions, assessments performed and documented by Faraz OWUSU.
--- NOTE | 2019-04-23 17:54 | NUR ---
Problems reprioritized. Patient report given, questions answered & plan of care reviewed with Carlos CHANEY.
[2019-04-23 18:00] VITALS: BP 132/58
[2019-04-23] MEDS: Melatonin 3mg tablet PO SCH (20:12)
[2019-04-23] MEDS: insulin glargine (Lantus) pen - multi-dose SQ SCH (21:00)
[2019-04-24] VITALS: BP 133/74
[2019-04-24 05:07] LABS: BASOPHILS % (AUTO) 0.3 % (0-1); EOSINOPHILS # (AUTO) 0.2 X10'3 (0-0.9); EOSINOPHILS % (AUTO) 2.6 % (0-6); HEMATOCRIT 26.3 % (35.0-45.0); HEMOGLOBIN 8.4 g/dl (12.0-16.0); LYMPHOCYTES # (AUTO) 1.8 X10'3 (1.1-4.8); LYMPHOCYTES % (AUTO) 20.6 % (21-51); MEAN CORPUSCULAR HEMOGLOBIN 26.9 PG (27.0-31.0); MEAN CORPUSCULAR HGB CONC 31.9 g/dL (33.0-36.5); MEAN CORPUSCULAR VOLUME 84.2 FL (78-98); MEAN PLATELET VOLUME 8.7 FL (7.4-10.4); MONOCYTES # (AUTO) 0.9 X10'3 (0-0.9); MONOCYTES % (AUTO) 10.5 % (2-12); NEUTROPHILS # (AUTO) 5.9 X10'3 (1.8-7.7); PLATELET COUNT 237 X10'3 (140-440); RED BLOOD COUNT 3.13 X10'6 (4.20-5.60); RED CELL DISTRIBUTION WIDTH 14.3 % (11.5-14.5)
[2019-04-24 05:23] LABS: ALBUMIN 2.1 G/DL (3.4-5.0); ANION GAP 10 (8-16); BLOOD UREA NITROGEN 28 MG/DL (7-18); BUN/CREATININE RATIO 16.1 (6.6-38.0); CALCIUM 8.5 MG/DL (8.5-10.1); CHLORIDE 111 MMOL/L (99-107); CREATININE 1.74 MG/DL (0.40-0.90); GLUCOSE 135 MG/DL (70-104); POTASSIUM 3.9 MMOL/L (3.5-5.1); SODIUM 146 MMOL/L (135-145); TOTAL CARBON DIOXIDE 25.4 MMOL/L (24-32); eGFR 29 ML/MIN
--- NOTE | 2019-04-24 06:56 | NUR ---
Patient in room [facility]ILVERIO 341. I have received report from Carlos CHANEY and had the opportunity to ask questions and assume patient care.
[2019-04-24 07:14] VITALS: BP 136/67
[2019-04-24] MEDS: polyethylene glycol 3350 17gm powd pack PO SCH (08:00)
[2019-04-24] MEDS: atorvastatin 20mg tablet PO SCH (08:14)
[2019-04-24] MEDS: docusate sod 100mg capsule PO SCH (08:14)
[2019-04-24] MEDS: PARoxetine 10mg tablet PO SCH (08:15)
[2019-04-24] MEDS: carvedilol 6.25mg tablet PO SCH (08:15)
[2019-04-24] MEDS: pregabalin 75mg capsule PO SCH (08:15)
[2019-04-24] MEDS: lactobacillus rhamnosus 10,000 MMU CELLS/CAPSULE PO SCH (08:15)
[2019-04-24] MEDS: heparin, porcine 5000 units/ml vial SQ SCH (08:16)
[2019-04-24] MEDS: oseltamivir phos 75mg capsule PO SCH (08:33)
[2019-04-24] MEDS: ipratropium/albuterol 3ml nebule NEB SCH (08:55)
[2019-04-24 12:21] VITALS: BP 147/63
--- NOTE | 2019-04-24 12:42 | NUR ---
Patient report given to Marquis nurse Kirk CHANEY. Awaiting supervisor picking crew time at 1330.
== END 2019-04-24 13:50 | DRG 193 ==
LOC: ER 15:44 → ED HOLD 17:37 → EDBEDREQ 18:22 → SUR 3N 18:59
PROVIDERS: ADMIT Family Medicine; ATTEND Family Medicine
DX: J10.1 Influenza due to other identified influenza virus with other respiratory manifestations (principal); G93.41 Metabolic encephalopathy; N17.0 Acute kidney failure with tubular necrosis; N30.01 Acute cystitis with hematuria; N18.4 Chronic kidney disease, stage 4 (severe); I13.0 Hypertensive heart and chronic kidney disease with heart failure and stage 1 through stage 4 chronic kidney disease, or unspecified chronic kidney disease; D63.1 Anemia in chronic kidney disease; E11.22 Type 2 diabetes mellitus with diabetic chronic kidney disease; E78.00 Pure hypercholesterolemia, unspecified; E78.5 Hyperlipidemia, unspecified; F41.9 Anxiety disorder, unspecified; G89.29 Other chronic pain; M54.9 Dorsalgia, unspecified; F03.90 Unspecified dementia, unspecified severity, without behavioral disturbance, psychotic disturbance, mood disturbance, and anxiety; I25.10 Atherosclerotic heart disease of native coronary artery without angina pectoris; I48.91 Unspecified atrial fibrillation; I50.9 Heart failure, unspecified; Z87.891 Personal history of nicotine dependence; Z95.1 Presence of aortocoronary bypass graft; Z79.82 Long term (current) use of aspirin; Z79.899 Other long term (current) drug therapy; Z88.5 Allergy status to narcotic agent
CPT/HCPCS: 36415; 71045; 80048; 80053; 81001; 82570; 82948; 83036; 83605; 83880; 83935; 84145; 84156; 84300; 85025; 87040; 87081; 87088; 87207; 87502; 87503; 93005; 94640; 94760; 97110; 97161; 97530; 99285; G0378; J0696; J1644; J1815; J2543; J7030